=== PATIENT | female | born 1985 | race American Indian/Alaskan Native ===

== ENCOUNTER 2016-11-27 04:54 | Outpatient (CLI) | payer MEDICAID ==
[2016-11-27 05:12] VITALS: BP 121/76
== END 2016-11-27 07:30 | disposition home or self-care (01) ==
LOC: TRG 04:54
PROVIDERS: ATTEND Obstetrics & Gynecology
DX: O62.9 Abnormality of forces of labor, unspecified (principal); Z87.891 Personal history of nicotine dependence; Z3A.39 39 weeks gestation of pregnancy

== ENCOUNTER 2016-11-27 22:29 | Outpatient (CLI) | payer MEDICAID ==
[2016-11-27 23:21] VITALS: BP 113/68
== END 2016-11-28 01:00 | disposition home or self-care (01) ==
LOC: TRG 22:29
PROVIDERS: ATTEND Obstetrics & Gynecology
DX: O62.9 Abnormality of forces of labor, unspecified (principal); Z87.891 Personal history of nicotine dependence; Z3A.39 39 weeks gestation of pregnancy

== ENCOUNTER 2016-11-28 14:16 | Inpatient (IN) | payer MEDICAID ==
[2016-11-28] MEDS ORDERED: POLYCILLIN/NS 2 GM/100 ML 2 GM/100 ML BAG IV ONE ×2 (14:30→15:00)
[2016-11-28] MEDS ORDERED: LACTATED RINGERS 1,000 ML ONE (14:30)
--- NOTE | 2016-11-28 14:38 | History and Physical Report ---
History of Present Illness Date of examination: 11/28/16 (walk in pt states she sees Dr.Anthony Salazar) Date of admission: 11/28/16 14:21 Chief complaint: pt reports SROM @ 0230 this AM Contractions worsened this AM History of present illness: this is a who states she has been seeing Dr. Mane Salazar Her assigned EDC 7-5-17 Pt started care @ 16 weeks. @ term vaginal deliveries 1 SAB Pt denies ETOH, smoking, drug use during Pt denies any complications with this , ie GDM, Htn Past History - Obstetrical History Expected Date of Delivery: 11/28/16 Actual Gestation: 40 Week(s) 0 Day(s) : 4 Para: 2 Hx # Term Pregnancies: 2 Spontaneous Abortions: 1 Number of Living Children: 2 Medications and Allergies Allergies Allergy/AdvReac Type Severity Reaction Status Date / Time No Known Allergies Allergy Verified 11/20/15 05:04 Home Medications Medication Instructions Recorded Confirmed Last Taken Type metroNIDAZOLE [Flagyl] 500 mg PO Q12HR #14 tab 11/20/15 Unknown Rx - Physical Exam Breasts: Positive: deferred Cardiovascular: Regular rate, Normal S1, Normal S2 Lungs: Positive: Normal air movement Abdomen: Positive: normal appearance, soft, normal bowel sounds. Negative: distention, tenderness Genitourinary (Female): Positive: normal external genitalia Vulva: both: normal Vagina: Positive: normal moisture. Negative: discharge Cervix: Negative: lesion, discharge Uterus: Positive: normal size, normal contour Adnexa: both: normal Anus/Rectum: Positive: normal perianal skin, heme negative. Negative: rectal mass, hemorrhoids Extremities: Positive: normal Deep Tendon Reflex Grade: Normal +2 - Obstetrical FHR: category 1 Uterine Contraction Monitor Mode: External Cervical Dilatation: 8 Cervical Effacement Percentage: 100 station: -2 Uterine Contraction Pattern: Regular Uterine Contraction Intensity: Moderate Results All other labs normal. Assessment and Plan pt arrived via EMS in active labor SVE 8 cm on arrival History obtained. Records release signed. All labs and UDS sent. Anticipate delivery.
[2016-11-28] MEDS ORDERED: ZOFRAN IV PRN (15:00)
[2016-11-28] MEDS ORDERED: PITOCin/NS 20 UNIT/1000ML DRIP 20 UNITS/1,000 ML BAG IV SCH (15:00)
[2016-11-28] MEDS ORDERED: PITOCin/NS 30 UNIT/500ML 30 UNITS/500 ML BAG IV SCH (15:00)
[2016-11-28] MEDS ORDERED: MINERAL OIL PO PRN (15:00)
[2016-11-28] MEDS ORDERED: LACTATED RINGERS 1,000 ML IV SCH (15:00)
[2016-11-28] MEDS ORDERED: ePHEDrine SULFATE IV PRN (15:00)
[2016-11-28] MEDS ORDERED: SUBLIMAZE IV PRN (15:00)
[2016-11-28] MEDS ORDERED: XYLOCAINE 2% INFILTRATI ONE (15:00)
[2016-11-28 15:07] LABS: Hematocrit 30.7 % (30.3-42.9); Mean Corpuscular HGB Conc 29 % (30-34); Mean Corpuscular Hemoglobin 21 pg (28-32); Mean Corpuscular Volume 70 fl (79-97); Platelet Count 341 K/mm3 (140-440); Red Blood Count 4.38 M/mm3 (3.65-5.03); Red Cell Distribution Width 18.8 % (13.2-15.2); White Blood Count 17.6 K/mm3 (4.5-11.0)
[2016-11-28] MEDS ORDERED: BRETHINE SUB-Q PRN (15:30)
[2016-11-28 15:40] LABS: HIVR-1/2 Ab Non React (Non React)
[2016-11-28 15:41] LABS: HIV-1 Antigen p24 Non React (Non React)
--- NOTE | 2016-11-28 16:29 | Procedure Note ---
OB Delivery Note - Delivery Date of Delivery: 11/28/16 Business Law Teacher: IRINA EASON Estimated blood loss: 500cc - Vaginal Delivery presentation: vertex Delivery position: OA Intrapartum events: PROM->1hr before delivery Delivery induction: none Delivery augmentation: pitocin Delivery monitor: external FHT, external uterine Route of delivery: Delivery placenta: spontaneous (sent to pathology) Delivery cord: 3 umbilical vessels Episiotomy: none Delivery laceration: none Anesthesia: intravenous Delivery comments: live born male over intact perineum Baby to mom's abdomen skin to skin Placenta and membrane delivered complete and intact, 3 vessel cord. Pit IVFs 8/9, EBL 500 FF @ umb Lochia moderate Mom and baby remain LDR stable - A at 1 minute: 8 at 5 minutes: 9 Infant Gender: Male (wgt 7-5)
[2016-11-28] MEDS ORDERED: TYLENOL PO PRN (16:34)
[2016-11-28] MEDS ORDERED: DULCOLAX PR PRN (16:34)
[2016-11-28] MEDS ORDERED: MILK OF MAGNESIA PO PRN (16:34)
[2016-11-28] MEDS ORDERED: LANSINOH TP PRN (16:34)
[2016-11-28] MEDS ORDERED: TUCKS PAD TP PRN (16:34)
[2016-11-28] MEDS ORDERED: PHENERGAN PO PRN (16:34)
[2016-11-28] MEDS ORDERED: BENADRYL PO PRN (16:34)
[2016-11-28] MEDS ORDERED: SODIUM CHLORIDE FLUSH SYRINGE 10 ML IV SCH (17:00)
[2016-11-28] MEDS ORDERED: POLYCILLIN/NS 1 GM/50 ML 1 GM/50 ML BAG IV SCH (18:30)
[2016-11-28] MEDS: MOTRIN PO SCH (18:40)
[2016-11-28 20:42] LABS: Urine Drugs of Abuse Note Disclamer
[2016-11-28 21:09] LABS: Bilirubin,Urine NEG (Negative); Blood,Urine LG (Negative); Ketones,Urine 20 mg/dL (Negative); Leukocyte Esterase,Urine LG (Negative); Mucus,Urine 3+ /HPF; Nitrite,Urine NEG (Negative); Urobilinogen,Urine < 2.0 mg/dL (<2.0)
[2016-11-28 21:14] LABS: RBC,Urine > 182.0 /HPF (0.0-6.0)
[2016-11-29] MEDS: MOTRIN PO SCH ×4 (00:29→17:58)
[2016-11-29] MEDS: NORCO 5/325 PO PRN ×4 (01:40→21:46)
[2016-11-29] MEDS: COLACE PO SCH ×3 (02:44→21:46)
[2016-11-29] MEDS ORDERED: BOOSTRIX IM ONE (06:00)
[2016-11-29 06:35] LABS: Hematocrit 23.6 % (30.3-42.9); Hemoglobin 7.1 gm/dl (10.1-14.3)
--- NOTE | 2016-11-29 07:56 | Discharge Summary ---
Providers - Providers Date of Admission: 11/28/16 14:21 Date of discharge: 11/29/16 (pt agrees with d/c later today) Attending physician: LATRELL MORALES Primary care physician: GANG D[employer] OPERATOR Hospitalization Reason for admission: active labor Delivery: Episiotomy: none Laceration: none Incision: normal Other procedures: none complications: none Discharge diagnosis: IUP at term delivered [place] baby: male Hospital course: uncomplicated vaginal delivery Pt w/o complaint VSS FF below umb Lochia small perineum intact H&H 12/16 drop r/ t blood loss from delivery FESO4 po started and RX for d/c provided. Doing well s/p vaginal delivery P: d/c today with instructions. Pt is not sure if she will f/u PP with her OB or come to our office [facility] for her care. She has been provided with the office number and instructed to call for an appointment Condition at discharge: Good Disposition: DC-01 TO HOME OR SELFCARE - Discharge Diagnoses (1) Spontaneous vaginal delivery Status: Acute Comment: rto 4 weeks for PP care Plan - Discharge Medications Prescriptions: Docusate Sodium [Colace] 100 mg PO BID PRN #60 capsule PRN Reason: Constipation Ferrous Sulfate [Feosol 325 MG tab] 325 mg PO BID #60 tablet Ibuprofen [Motrin 800 MG tab] 800 mg PO TID PRN #30 tablet PRN Reason: Pain - Provider Discharge Summary Activity: routine, no sex for 6 weeks, no heavy lifting 4 weeks, no strenuous exercise Diet: routine Instructions: routine Additional instructions: [] Smoking cessation referral if applicable(refer to patient education folder for contact #) [] Refer to [facility] Booklet Call your doctor immediately for: * Fever > 100.5 * Heavy vaginal bleeding ( >1 pad per hour) * Severe persistent headache * Shortness of breath * Reddened, hot, painful area to leg or breast * Drainage or odor from incision. * Keep incision clean and dry at all times and follow doctor's instructions regarding bathing/showering - Follow up plan Follow up: PRIMARY CARE, [Primary Care Provider] - 7 Days IRINA EASON CNM [Advanced Practice Nurse] - 7 Days (Congratulations! Please call [phone] to schedule your visit in 4 weeks and your son's circumcision in 1 week. Bring the EMLA cream with you to his visit. Take your medications as prescribed. )
[2016-11-29] MEDS: PRENATAL VITAMIN PO SCH (10:53)
[2016-11-29] MEDS ORDERED: M-M-R II VACCINE SUB-Q ONE (16:34)
[2016-11-30] MEDS: MOTRIN PO SCH ×2 (00:06→06:25)
--- NOTE | 2016-11-30 09:12 | Event Note ---
Date: 11/30/16 No complaints, desires d/c home.
[2016-11-30] MEDS: NORCO 5/325 PO PRN ×2 (10:05→16:29)
[2016-11-30] MEDS: PRENATAL VITAMIN PO SCH (10:05)
[2016-11-30] MEDS: COLACE PO SCH (10:05)
[2016-11-30 17:39] VITALS: BP 114/66
== END 2016-11-30 17:30 | disposition home or self-care (01) | DRG 775 ==
LOC: TRG 14:16 → LD 14:21 → TRG 14:21 → OB 17:54
PROVIDERS: ADMIT Obstetrics & Gynecology; ATTEND Obstetrics & Gynecology
PROC: 10E0XZZ Delivery of Products of Conception, External Approach (ICD-10-PCS; principal; 2016-11-28)
DX: O42.02 Full-term premature rupture of membranes, onset of labor within 24 hours of rupture (principal); Z3A.40 40 weeks gestation of pregnancy; Z37.0 Single live birth
CPT/HCPCS: 36415; 80307; 81001; 85014; 85018; 85027; 85660; 86592; 86706; 86762; 86803; 86850; 86900; 86901; 87806; 88307; 99211; G0463; J0290; J2590; J3010; J7120

== ENCOUNTER 2020-12-15 06:39 | Emergency (ER) | payer SELFPAY | END 2020-12-15 08:50 | disposition left against medical advice (07) | LOC: ED 06:39 ==